=== PATIENT | male | born 1975 | race Two or more races ===

== ENCOUNTER 2020-12-10 11:40 | Emergency (ER) | payer MEDICAID, OTHER ==
[~2020-12-10] VITALS: Ht 167.6 cm; Wt 83.9 kg
[2020-12-10] MEDS ORDERED: KETOROLAC TROMETH 60MG/2ML VIAL IM ONE (14:15)
[2020-12-10 14:45] VITALS: BP 128/66
== END 2020-12-10 15:05 | disposition home or self-care (01) ==
LOC: ER 11:40
DX: G89.29 Other chronic pain (principal); M54.5 Low back pain; Z88.8 Allergy status to other drugs, medicaments and biological substances; Z88.5 Allergy status to narcotic agent
CPT/HCPCS: 72100; 96372; 99283; J1885

== ENCOUNTER 2020-12-14 13:23 | Inpatient (IN) | payer MEDICAID ==
[~2020-12-14] VITALS: Ht 167.6 cm; Wt 97.5 kg
[2020-12-14] MEDS ORDERED: IBUPROFEN 600 MG TAB PO ONE (13:45)
[2020-12-14] MEDS ORDERED: SODIUM CHLORIDE 0.9% 1,000 ML IV ONE ×2 (13:45→20:30)
[2020-12-14] MEDS ORDERED: GABAPENTIN 400 MG CAP PO ONE (13:45)
[2020-12-14] MEDS ORDERED: VANCOMYCIN PER PHARMACY 1,000 MG IV SCH (14:00)
[2020-12-14 14:12] LABS: Basophils # (auto) 0.1 10 ^3/uL (0-0.2); Basophils % (auto) 0.6 % (0.0-2.0); Eosinophils # (auto) 0 10 ^3/uL (0-0.8); Hematocrit 37.6 % (41.0-53.0); Hemoglobin 12.9 g/dL (13.5-17.5); Lymphocytes # (auto) 0.7 10 ^3/uL (0.4-5.4); Lymphocytes % (auto) 5.1 % (10.0-50.0); Mean Corpuscular Hemoglobin 29.3 pg (28.0-32.0); Mean Corpuscular Hgb Conc. 34.2 g/dL (32.0-36.0); Mean Corpuscular Volume 85.8 fL (80.0-100.0); Monocytes % (auto) 6.9 % (0.0-12.0); Neutrophils # (auto) 12.6 10 ^3/uL (1.6-8.6); Neutrophils % (auto) 87.4 % (37.0-80.0); Nucleated Red Blood Cells % 0.1 %; Red Blood Cells 4.39 10^6/uL (4.5-5.90); Red Cell Distribution Width 16.7 % (11.8-14.3); White Blood Cell 14.4 10^3/uL (4.4-10.8)
[2020-12-14] MEDS ORDERED: VANCOMYCIN 1GM/250ML 250 ML IV SCH (14:30)
[2020-12-14 14:31] LABS: Albumin 2.9 g/dL (3.4-5.0); BUN/Creatinine Ratio 16.2; Calcium 9.3 mg/dL (8.5-10.1); Potassium 3.5 mmol/L (3.5-5.1)
[2020-12-14 14:34] LABS: Total Protein 8.4 g/dL (6.4-8.2)
[2020-12-14] MEDS ORDERED: IOHEXOL 300 MG/ML 100ML BOTTLE IJ ONE (14:59)
[2020-12-14 18:04] LABS: Urine Bacteria NONE SEEN /hpf (None Seen); Urine Blood Negative /uL (Negative); Urine Mucus FEW (None Seen); Urine Specific Gravity 1.039 (1.001-1.035); Urine WBC 6 /hpf (0 - 3)
[2020-12-14] MEDS ORDERED: ONDANSETRON HCL 4 MG/2 ML VIAL IV ONE (20:15)
[2020-12-14] MEDS ORDERED: KETOROLAC TROMETH 30 MG/ML 1ML VIAL IV ONE (20:15)
[2020-12-14] MEDS ORDERED: ONDANSETRON HCL 4 MG/2 ML VIAL IV PRN (21:45)
[2020-12-14] MEDS ORDERED: IBUPROFEN 600 MG TAB PO PRN (21:45)
[2020-12-14] MEDS ORDERED: VANCOMYCIN PER PHARMACY 0 MG IV SCH (21:45)
[2020-12-14] MEDS: GABAPENTIN 300 MG CAP PO SCH (22:00)
[2020-12-14] MEDS: PIPERACILLIN-TAZO 4.5GM 100 ML IV SCH ×2 (22:34→23:50)
[2020-12-14] MEDS: SODIUM CHLORIDE 0.9% 1,000 ML IV SCH (23:50)
[2020-12-15] VITALS (7 sets, daily range): BP systolic 97–125; BP diastolic 63–90
[2020-12-15] MEDS ORDERED: GABA-339 PO (01:50)
[2020-12-15] MEDS ORDERED: ACET-1156 PO (01:50)
[2020-12-15] MEDS ORDERED: IBUP200C95 PO (01:50)
[2020-12-15] MEDS: ACETAMINOPHEN 325 MG TAB PO PRN (04:41)
[2020-12-15 06:20] LABS: Basophils # (auto) 0 10 ^3/uL (0-0.2); Basophils % (auto) 0.1 % (0.0-2.0); Eosinophils # (auto) 0 10 ^3/uL (0-0.8); Eosinophils % (auto) 0.1 % (0.0-7.0); Hematocrit 34.5 % (41.0-53.0); Hemoglobin 11.4 g/dL (13.5-17.5); Lymphocytes # (auto) 1.6 10 ^3/uL (0.4-5.4); Lymphocytes % (auto) 11.2 % (10.0-50.0); Mean Corpuscular Hemoglobin 28.8 pg (28.0-32.0); Mean Corpuscular Hgb Conc. 33.1 g/dL (32.0-36.0); Mean Corpuscular Volume 86.8 fL (80.0-100.0); Monocytes # (auto) 1.2 10 ^3/uL (0-1.3); Monocytes % (auto) 8.6 % (0.0-12.0); Neutrophils # (auto) 11.1 10 ^3/uL (1.6-8.6); Red Blood Cells 3.97 10^6/uL (4.5-5.90); Red Cell Distribution Width 16.9 % (11.8-14.3); White Blood Cell 13.9 10^3/uL (4.4-10.8)
[2020-12-15] MEDS: PIPERACILLIN-TAZO 4.5GM 100 ML IV SCH (06:27)
[2020-12-15 06:40] LABS: Albumin 2.3 g/dL (3.4-5.0); Calcium 8.9 mg/dL (8.5-10.1); Potassium 3.5 mmol/L (3.5-5.1)
[2020-12-15 06:42] LABS: Bilirubin, Total 1.7 mg/dL (0.2-1.0); Total Protein 7.2 g/dL (6.4-8.2)
[2020-12-15] MEDS ORDERED: VANCOMYCIN 1GM/250ML 250 ML IV SCH (08:00)
[2020-12-15] MEDS: ENOXAPARIN SOD 40 MG/0.4 ML SYRINGE SC SCH (08:46)
[2020-12-15] MEDS: GABAPENTIN 300 MG CAP PO SCH ×3 (08:46→21:38)
[2020-12-15] MEDS: cefTRIAXone 1GM/50ML D5W 50 ML IV SCH (08:47)
[2020-12-15] MEDS: SODIUM CHLORIDE 0.9% 1,000 ML IV SCH ×2 (08:47→15:45)
[2020-12-15] MEDS ORDERED: VANCOMYCIN PER PHARMACY 1,000 MG IV SCH (09:15)
[2020-12-15] MEDS: VANCOMYCIN 1GM/250ML 250 ML IV SCH ×2 (10:00→21:37)
[2020-12-15] MEDS: MORPHINE SULFATE INJECTION 2 MG/ML SYRG IV PRN ×2 (13:56→20:10)
[2020-12-15] MEDS ORDERED: LACTULOSE 20Gm/30ML SOLN PO PRN (15:45)
[2020-12-15] MEDS: DICYCLOMINE HCL 10 MG CAP PO PRN (20:44)
[2020-12-15] MEDS: DOCUSATE SOD 100 MG CAP PO SCH (21:38)
[2020-12-16] MEDS: MORPHINE SULFATE INJECTION 2 MG/ML SYRG IV PRN ×5 (01:27→20:46)
[2020-12-16] MEDS: SODIUM CHLORIDE 0.9% 1,000 ML IV SCH ×2 (01:27→14:23)
[2020-12-16 05:30] VITALS: BP 127/74
[2020-12-16 05:40] LABS: Basophils # (auto) 0 10 ^3/uL (0-0.2); Basophils % (auto) 0.3 % (0.0-2.0); Eosinophils # (auto) 0 10 ^3/uL (0-0.8); Eosinophils % (auto) 0.1 % (0.0-7.0); Hematocrit 32.9 % (41.0-53.0); Hemoglobin 11.1 g/dL (13.5-17.5); Lymphocytes # (auto) 1.4 10 ^3/uL (0.4-5.4); Lymphocytes % (auto) 12.9 % (10.0-50.0); Mean Corpuscular Hemoglobin 29.3 pg (28.0-32.0); Mean Corpuscular Hgb Conc. 33.6 g/dL (32.0-36.0); Mean Corpuscular Volume 87.1 fL (80.0-100.0); Monocytes # (auto) 0.9 10 ^3/uL (0-1.3); Monocytes % (auto) 8.4 % (0.0-12.0); Neutrophils # (auto) 8.2 10 ^3/uL (1.6-8.6); Neutrophils % (auto) 78.3 % (37.0-80.0); Nucleated Red Blood Cells % 0.1 %; Red Blood Cells 3.78 10^6/uL (4.5-5.90); Red Cell Distribution Width 16.8 % (11.8-14.3); White Blood Cell 10.5 10^3/uL (4.4-10.8)
[2020-12-16] MEDS: GABAPENTIN 300 MG CAP PO SCH ×3 (05:51→21:10)
[2020-12-16 06:02] LABS: Potassium 3.2 mmol/L (3.5-5.1)
[2020-12-16 06:13] LABS: Albumin 2.2 g/dL (3.4-5.0); BUN/Creatinine Ratio 17.5; Calcium 8.6 mg/dL (8.5-10.1)
[2020-12-16 06:24] LABS: Bilirubin, Total 1.5 mg/dL (0.2-1.0)
[2020-12-16 08:01] LABS: Amphetamine Screen, Urine NEGATIVE (NEGATIVE); Barbiturate Scree,Urine NEGATIVE (NEGATIVE); Benzodiazephine Screen, Urine NEGATIVE (NEGATIVE); Cannabinoid Screen, Urine NEGATIVE (NEGATIVE); Cocaine Screen, Urine NEGATIVE (NEGATIVE); Opiate Scree,Urine NEGATIVE (NEGATIVE); Phencyclidine Screen, Urine NEGATIVE (NEGATIVE)
[2020-12-16] MEDS: PANTOPRAZOLE 40 MG TAB PO SCH (08:08)
[2020-12-16] MEDS: cefTRIAXone 1GM/50ML D5W 50 ML IV SCH (08:08)
[2020-12-16] MEDS: ENOXAPARIN SOD 40 MG/0.4 ML SYRINGE SC SCH (08:08)
[2020-12-16] MEDS: DOCUSATE SOD 100 MG CAP PO SCH ×2 (08:08→21:11)
[2020-12-16] MEDS: ACETAMINOPHEN 325 MG TAB PO PRN ×2 (08:15→20:46)
[2020-12-16 08:48] VITALS: BP 123/70
[2020-12-16] MEDS: VANCOMYCIN 1GM/250ML 250 ML IV SCH ×2 (10:30→22:10)
[2020-12-16 13:00] VITALS: BP 117/60
[2020-12-16] MEDS ORDERED: POTASSIUM CHL 20 Meq TABLET PO ONE (13:00)
[2020-12-16] MEDS: DICYCLOMINE HCL 10 MG CAP PO PRN (14:25)
[2020-12-16 16:50] VITALS: BP 131/77
[2020-12-16 22:10] VITALS: BP 133/70
[2020-12-17] MEDS: SODIUM CHLORIDE 0.9% 1,000 ML IV SCH ×3 (01:37→18:05)
[2020-12-17] MEDS: MORPHINE SULFATE INJECTION 2 MG/ML SYRG IV PRN ×5 (01:50→22:39)
[2020-12-17] MEDS: ACETAMINOPHEN 325 MG TAB PO PRN ×3 (04:32→21:10)
[2020-12-17 05:13] VITALS: BP 132/65
[2020-12-17 05:16] LABS: Basophils # (auto) 0 10 ^3/uL (0-0.2); Basophils % (auto) 0.4 % (0.0-2.0); Eosinophils # (auto) 0 10 ^3/uL (0-0.8); Eosinophils % (auto) 0.2 % (0.0-7.0); Hematocrit 39.4 % (41.0-53.0); Lymphocytes # (auto) 0.9 10 ^3/uL (0.4-5.4); Lymphocytes % (auto) 12.5 % (10.0-50.0); Mean Corpuscular Hemoglobin 29.1 pg (28.0-32.0); Mean Corpuscular Hgb Conc. 32.9 g/dL (32.0-36.0); Mean Corpuscular Volume 88.4 fL (80.0-100.0); Monocytes # (auto) 0.8 10 ^3/uL (0-1.3); Monocytes % (auto) 10.9 % (0.0-12.0); Neutrophils # (auto) 5.5 10 ^3/uL (1.6-8.6); Red Blood Cells 4.45 10^6/uL (4.5-5.90); Red Cell Distribution Width 17.2 % (11.8-14.3); White Blood Cell 7.2 10^3/uL (4.4-10.8)
[2020-12-17] MEDS: GABAPENTIN 300 MG CAP PO SCH ×3 (05:41→21:10)
[2020-12-17 05:42] LABS: Calcium 8.8 mg/dL (8.5-10.1); Magnesium 2.3 mg/dL (1.6-2.6); Potassium 3.6 mmol/L (3.5-5.1)
[2020-12-17 05:44] LABS: Bilirubin, Total 1.5 mg/dL (0.2-1.0)
[2020-12-17] MEDS: VANCOMYCIN 1GM/250ML 250 ML IV SCH ×3 (05:53→21:10)
[2020-12-17] MEDS: cefTRIAXone 1GM/50ML D5W 50 ML IV SCH (09:18)
[2020-12-17] MEDS: PANTOPRAZOLE 40 MG TAB PO SCH (09:19)
[2020-12-17] MEDS: ENOXAPARIN SOD 40 MG/0.4 ML SYRINGE SC SCH (09:19)
[2020-12-17] MEDS: DOCUSATE SOD 100 MG CAP PO SCH ×2 (09:19→21:10)
[2020-12-17 10:17] VITALS: BP 104/59
[2020-12-17 13:00] VITALS: BP 123/70
[2020-12-17 17:00] VITALS: BP 131/67
[2020-12-17 22:00] VITALS: BP 135/75
[2020-12-18] MEDS: SODIUM CHLORIDE 0.9% 1,000 ML IV SCH ×2 (03:45→14:30)
[2020-12-18 05:00] VITALS: BP 115/69
[2020-12-18] MEDS: GABAPENTIN 300 MG CAP PO SCH ×3 (05:57→21:49)
[2020-12-18] MEDS: VANCOMYCIN 1GM/250ML 250 ML IV SCH ×4 (06:00→21:49)
[2020-12-18] MEDS: MORPHINE SULFATE INJECTION 2 MG/ML SYRG IV PRN ×3 (06:03→14:30)
[2020-12-18 07:57] LABS: Basophils # (auto) 0 10 ^3/uL (0-0.2); Hematocrit 33.5 % (41.0-53.0); Lymphocytes # (auto) 1.5 10 ^3/uL (0.4-5.4); Mean Corpuscular Volume 86.7 fL (80.0-100.0); Red Blood Cells 3.87 10^6/uL (4.5-5.90)
[2020-12-18 08:00] LABS: Basophils % (auto) 0.2 % (0.0-2.0); Eosinophils # (auto) 0 10 ^3/uL (0-0.8); Eosinophils % (auto) 0.5 % (0.0-7.0); Hemoglobin 11.2 g/dL (13.5-17.5); Mean Corpuscular Hgb Conc. 33.4 g/dL (32.0-36.0); Monocytes % (auto) 10.4 % (0.0-12.0); Neutrophils # (auto) 7.2 10 ^3/uL (1.6-8.6); Neutrophils % (auto) 73.9 % (37.0-80.0); White Blood Cell 9.8 10^3/uL (4.4-10.8)
[2020-12-18 08:13] LABS: Calcium 8.6 mg/dL (8.5-10.1); Potassium 3.2 mmol/L (3.5-5.1)
[2020-12-18 08:15] LABS: BUN/Creatinine Ratio 9.2
[2020-12-18 08:44] VITALS: BP 136/73
[2020-12-18] MEDS: cefTRIAXone 1GM/50ML D5W 50 ML IV SCH (09:58)
[2020-12-18] MEDS: ENOXAPARIN SOD 40 MG/0.4 ML SYRINGE SC SCH (09:58)
[2020-12-18] MEDS: ACETAMINOPHEN 325 MG TAB PO PRN (09:58)
[2020-12-18] MEDS: PANTOPRAZOLE 40 MG TAB PO SCH (09:58)
[2020-12-18] MEDS: DOCUSATE SOD 100 MG CAP PO SCH ×2 (09:58→21:49)
[2020-12-18] MEDS: DICYCLOMINE HCL 10 MG CAP PO PRN (10:12)
[2020-12-18 12:45] VITALS: BP 114/62
[2020-12-18 16:45] VITALS: BP 125/74
[2020-12-18] MEDS ORDERED: BISACODYL 10 MG RECT SUPP PR ONE (17:15)
[2020-12-18] MEDS ORDERED: POTASSIUM CHL 10 Meq TABLET PO ONE (17:30)
[2020-12-18] MEDS: OXYCODONE W/ ACETAMINOPHEN 5/325MG TABLET PO PRN ×2 (17:48→21:50)
[2020-12-18 22:00] VITALS: BP 106/58
[2020-12-19] MEDS: VANCOMYCIN 1GM/250ML 250 ML IV SCH ×3 (04:12→17:09)
[2020-12-19] MEDS: OXYCODONE W/ ACETAMINOPHEN 5/325MG TABLET PO PRN ×4 (04:20→22:55)
[2020-12-19 05:26] VITALS: BP 118/71
[2020-12-19] MEDS: GABAPENTIN 300 MG CAP PO SCH ×3 (05:29→22:17)
[2020-12-19 08:59] LABS: Basophils # (auto) 0 10 ^3/uL (0-0.2); Basophils % (auto) 0.5 % (0.0-2.0); Eosinophils # (auto) 0.1 10 ^3/uL (0-0.8); Lymphocytes # (auto) 1.4 10 ^3/uL (0.4-5.4); Monocytes # (auto) 0.8 10 ^3/uL (0-1.3); Neutrophils # (auto) 7.2 10 ^3/uL (1.6-8.6); White Blood Cell 9.6 10^3/uL (4.4-10.8)
[2020-12-19 09:00] LABS: Eosinophils % (auto) 1.1 % (0.0-7.0); Hematocrit 34.9 % (41.0-53.0); Hemoglobin 11.6 g/dL (13.5-17.5); Lymphocytes % (auto) 14.5 % (10.0-50.0); Mean Corpuscular Hgb Conc. 33.3 g/dL (32.0-36.0); Mean Corpuscular Volume 87.2 fL (80.0-100.0); Monocytes % (auto) 8.7 % (0.0-12.0); Neutrophils % (auto) 75.2 % (37.0-80.0)
[2020-12-19] MEDS ORDERED: FLEET ENEMA(ADULT) 135 ML PR ONE (09:00)
[2020-12-19 09:15] VITALS: BP 113/72
[2020-12-19 09:17] LABS: BUN/Creatinine Ratio 9.4; Calcium 8.7 mg/dL (8.5-10.1); Potassium 3.5 mmol/L (3.5-5.1)
[2020-12-19] MEDS: DOCUSATE SOD 100 MG CAP PO SCH ×2 (10:37→22:17)
[2020-12-19] MEDS: cefTRIAXone 1GM/50ML D5W 50 ML IV SCH (10:37)
[2020-12-19] MEDS: PANTOPRAZOLE 40 MG TAB PO SCH (10:37)
[2020-12-19] MEDS: ENOXAPARIN SOD 40 MG/0.4 ML SYRINGE SC SCH (10:37)
[2020-12-19 13:00] VITALS: BP 130/75
[2020-12-19 17:00] VITALS: BP 122/70
[2020-12-19] MEDS: ACETAMINOPHEN 325 MG TAB PO PRN (20:05)
[2020-12-19 22:00] VITALS: BP 126/69
[2020-12-20] MEDS: VANCOMYCIN 1GM/250ML 250 ML IV SCH ×3 (01:27→18:14)
[2020-12-20] MEDS: OXYCODONE W/ ACETAMINOPHEN 5/325MG TABLET PO PRN ×4 (03:35→18:15)
[2020-12-20 05:00] VITALS: BP 118/69
[2020-12-20] MEDS: GABAPENTIN 300 MG CAP PO SCH ×3 (06:22→22:13)
[2020-12-20 09:00] VITALS: BP 120/68
[2020-12-20] MEDS: cefTRIAXone 1GM/50ML D5W 50 ML IV SCH (09:58)
[2020-12-20] MEDS: PANTOPRAZOLE 40 MG TAB PO SCH (09:59)
[2020-12-20] MEDS: DOCUSATE SOD 100 MG CAP PO SCH ×2 (09:59→22:13)
[2020-12-20] MEDS: ENOXAPARIN SOD 40 MG/0.4 ML SYRINGE SC SCH (10:00)
[2020-12-20 13:01] VITALS: BP 116/66
[2020-12-20] MEDS: KETOROLAC TROMETH 30 MG/ML 1ML VIAL IV PRN ×2 (14:45→22:14)
[2020-12-20 17:01] VITALS: BP 119/62
[2020-12-20 22:00] VITALS: BP 138/70
[2020-12-20] MEDS: NYSTATIN TOPICAL POWDER 15GM TOP SCH (22:00)
[2020-12-21] MEDS: VANCOMYCIN 1GM/250ML 250 ML IV SCH ×3 (01:23→17:30)
[2020-12-21] MEDS: OXYCODONE W/ ACETAMINOPHEN 5/325MG TABLET PO PRN ×3 (03:13→20:47)
[2020-12-21 05:00] VITALS: BP 133/76
[2020-12-21 05:47] LABS: Potassium 3.5 mmol/L (3.5-5.1)
[2020-12-21 05:55] LABS: Calcium 8.9 mg/dL (8.5-10.1); Magnesium 2.7 mg/dL (1.6-2.6)
[2020-12-21 05:59] LABS: Bilirubin, Total 0.8 mg/dL (0.2-1.0)
[2020-12-21] MEDS: GABAPENTIN 300 MG CAP PO SCH ×3 (06:25→22:40)
[2020-12-21 09:00] VITALS: BP 112/64
[2020-12-21] MEDS: DOCUSATE SOD 100 MG CAP PO SCH ×2 (09:20→22:40)
[2020-12-21] MEDS: PANTOPRAZOLE 40 MG TAB PO SCH (09:20)
[2020-12-21] MEDS: ENOXAPARIN SOD 40 MG/0.4 ML SYRINGE SC SCH (09:20)
[2020-12-21] MEDS: KETOROLAC TROMETH 30 MG/ML 1ML VIAL IV PRN ×2 (09:21→17:54)
[2020-12-21] MEDS: cefTRIAXone 1GM/50ML D5W 50 ML IV SCH (10:37)
[2020-12-21 13:00] VITALS: BP 108/65
[2020-12-21] MEDS: NYSTATIN TOPICAL POWDER 15GM TOP SCH ×2 (14:56→22:40)
[2020-12-21 17:00] VITALS: BP 135/74
[2020-12-21] MEDS ORDERED: LORazepam 2MG/ML-1ML VIAL IV ONE (18:00)
[2020-12-21 22:00] VITALS: BP 128/68
[2020-12-21] MEDS: ACETAMINOPHEN 325 MG TAB PO PRN (23:31)
[2020-12-22] MEDS: VANCOMYCIN 1GM/250ML 250 ML IV SCH ×2 (01:43→19:41)
[2020-12-22 05:00] VITALS: BP 114/65
[2020-12-22] MEDS: KETOROLAC TROMETH 30 MG/ML 1ML VIAL IV PRN ×2 (05:01→23:58)
[2020-12-22] MEDS: GABAPENTIN 300 MG CAP PO SCH ×3 (07:26→20:45)
[2020-12-22 09:30] VITALS: BP 115/70
[2020-12-22] MEDS: PANTOPRAZOLE 40 MG TAB PO SCH (10:26)
[2020-12-22] MEDS: DOCUSATE SOD 100 MG CAP PO SCH ×2 (10:26→20:45)
[2020-12-22] MEDS: OXYCODONE W/ ACETAMINOPHEN 5/325MG TABLET PO PRN ×3 (10:27→20:45)
[2020-12-22] MEDS: ENOXAPARIN SOD 40 MG/0.4 ML SYRINGE SC SCH (10:27)
[2020-12-22] MEDS: NYSTATIN TOPICAL POWDER 15GM TOP SCH ×2 (10:30→20:45)
[2020-12-22] MEDS ORDERED: GADOTERATE MEG 10 MMOL/20ml INJ (0.5MMOL/ml) IV ONE (11:57)
[2020-12-22 12:38] VITALS: BP 120/75
[2020-12-22 16:55] VITALS: BP 124/74
[2020-12-22 22:00] VITALS: BP 116/69
[2020-12-23] MEDS: TEMAZEPAM 15 MG CAP PO PRN ×2 (00:10→23:08)
[2020-12-23] MEDS: VANCOMYCIN 1GM/250ML 250 ML IV SCH ×3 (04:00→23:09)
[2020-12-23] MEDS: OXYCODONE W/ ACETAMINOPHEN 5/325MG TABLET PO PRN ×3 (04:00→16:35)
[2020-12-23 05:00] VITALS: BP 115/71
[2020-12-23] MEDS: GABAPENTIN 300 MG CAP PO SCH ×3 (07:10→20:30)
[2020-12-23 08:00] VITALS: BP 133/75
[2020-12-23] MEDS: PANTOPRAZOLE 40 MG TAB PO SCH (08:05)
[2020-12-23] MEDS: DOCUSATE SOD 100 MG CAP PO SCH ×2 (08:05→20:30)
[2020-12-23] MEDS: ENOXAPARIN SOD 40 MG/0.4 ML SYRINGE SC SCH (08:06)
[2020-12-23] MEDS: KETOROLAC TROMETH 30 MG/ML 1ML VIAL IV PRN (08:06)
[2020-12-23] MEDS: NYSTATIN TOPICAL POWDER 15GM TOP SCH ×2 (10:00→20:32)
[2020-12-23 12:00] VITALS: BP 119/67
[2020-12-23] MEDS: HYDROmorphone HCL 2 MG/ML VL IV PRN ×2 (14:37→20:31)
[2020-12-23] MEDS: FLORASTOR (S. BOULARDII) 250 MG CAP PO SCH (14:39)
[2020-12-23 16:00] VITALS: BP 118/77
[2020-12-23] MEDS: Ensure Enlive Strawberry 8oz Bottle PO SCH (18:00)
[2020-12-23 22:10] VITALS: BP 130/80
[2020-12-24] MEDS: HYDROmorphone HCL 2 MG/ML VL IV PRN ×4 (03:56→21:16)
[2020-12-24 05:02] VITALS: BP 102/60
[2020-12-24] MEDS: GABAPENTIN 300 MG CAP PO SCH ×3 (05:57→21:14)
[2020-12-24] MEDS: OXYCODONE W/ ACETAMINOPHEN 5/325MG TABLET PO PRN ×2 (06:40→17:49)
[2020-12-24 07:14] LABS: BUN/Creatinine Ratio 19.7; Calcium 8.7 mg/dL (8.5-10.1); Magnesium 2.9 mg/dL (1.6-2.6); Potassium 3.9 mmol/L (3.5-5.1)
[2020-12-24] MEDS: Ensure Enlive Strawberry 8oz Bottle PO SCH ×2 (08:20→17:48)
[2020-12-24 09:00] VITALS: BP 108/62
[2020-12-24 09:38] LABS: Basophils # (auto) 0 10 ^3/uL (0-0.2); Basophils % (auto) 0.3 % (0.0-2.0); Eosinophils # (auto) 0.1 10 ^3/uL (0-0.8); Hematocrit 35.7 % (41.0-53.0); Hemoglobin 12.3 g/dL (13.5-17.5); Lymphocytes % (auto) 16.8 % (10.0-50.0); Mean Corpuscular Hemoglobin 29.9 pg (28.0-32.0); Mean Corpuscular Hgb Conc. 34.5 g/dL (32.0-36.0); Mean Corpuscular Volume 86.6 fL (80.0-100.0); Monocytes # (auto) 0.7 10 ^3/uL (0-1.3); Monocytes % (auto) 6.3 % (0.0-12.0); Neutrophils % (auto) 75.6 % (37.0-80.0); Red Blood Cells 4.12 10^6/uL (4.5-5.90); Red Cell Distribution Width 16.8 % (11.8-14.3); White Blood Cell 11.8 10^3/uL (4.4-10.8)
[2020-12-24] MEDS: FLORASTOR (S. BOULARDII) 250 MG CAP PO SCH (10:28)
[2020-12-24] MEDS: DOCUSATE SOD 100 MG CAP PO SCH ×2 (10:28→21:14)
[2020-12-24] MEDS: VANCOMYCIN 1GM/250ML 250 ML IV SCH ×2 (10:28→21:13)
[2020-12-24] MEDS: ENOXAPARIN SOD 40 MG/0.4 ML SYRINGE SC SCH (10:29)
[2020-12-24] MEDS: NYSTATIN TOPICAL POWDER 15GM TOP SCH ×2 (10:29→21:14)
[2020-12-24] MEDS: PANTOPRAZOLE 40 MG TAB PO SCH (10:29)
[2020-12-24 13:00] VITALS: BP 123/73
[2020-12-24 17:00] VITALS: BP 117/66
[2020-12-24 22:00] VITALS: BP 121/70
[2020-12-25] MEDS: TEMAZEPAM 15 MG CAP PO PRN (01:28)
[2020-12-25] MEDS: HYDROmorphone HCL 2 MG/ML VL IV PRN ×5 (03:28→22:26)
[2020-12-25 05:00] VITALS: BP 111/60
[2020-12-25] MEDS: VANCOMYCIN 1GM/250ML 250 ML IV SCH ×2 (05:46→16:46)
[2020-12-25] MEDS: GABAPENTIN 300 MG CAP PO SCH ×3 (05:46→22:25)
[2020-12-25] MEDS: OXYCODONE W/ ACETAMINOPHEN 5/325MG TABLET PO PRN ×2 (05:57→16:46)
[2020-12-25] MEDS: DOCUSATE SOD 100 MG CAP PO SCH ×2 (08:51→22:25)
[2020-12-25] MEDS: FLORASTOR (S. BOULARDII) 250 MG CAP PO SCH (08:51)
[2020-12-25] MEDS: PANTOPRAZOLE 40 MG TAB PO SCH (08:51)
[2020-12-25] MEDS: Ensure Enlive Strawberry 8oz Bottle PO SCH ×2 (08:52→16:46)
[2020-12-25] MEDS: NYSTATIN TOPICAL POWDER 15GM TOP SCH ×2 (08:52→22:25)
[2020-12-25] MEDS: ENOXAPARIN SOD 40 MG/0.4 ML SYRINGE SC SCH (08:52)
[2020-12-25 09:00] VITALS: BP 124/80
[2020-12-25 13:00] VITALS: BP 115/70
[2020-12-25] MEDS: ASPirin-EC 81 mg tab PO SCH (13:28)
[2020-12-25 17:11] VITALS: BP 116/71
[2020-12-25 21:54] VITALS: BP 121/76
[2020-12-26] MEDS: TEMAZEPAM 15 MG CAP PO PRN (00:32)
[2020-12-26] MEDS: VANCOMYCIN 1GM/250ML 250 ML IV SCH ×2 (02:23→12:00)
[2020-12-26] MEDS: HYDROmorphone HCL 2 MG/ML VL IV PRN ×6 (04:04→19:54)
[2020-12-26] MEDS: LACTULOSE 20Gm/30ML SOLN PO PRN (04:13)
[2020-12-26 05:30] VITALS: BP 104/61
[2020-12-26 05:59] LABS: Basophils # (auto) 0.1 10 ^3/uL (0-0.2); Eosinophils # (auto) 0.2 10 ^3/uL (0-0.8); Mean Corpuscular Hgb Conc. 32.7 g/dL (32.0-36.0); Monocytes # (auto) 0.8 10 ^3/uL (0-1.3); Neutrophils # (auto) 6.4 10 ^3/uL (1.6-8.6); White Blood Cell 9.4 10^3/uL (4.4-10.8)
[2020-12-26 06:02] LABS: Basophils % (auto) 0.6 % (0.0-2.0); Eosinophils % (auto) 1.9 % (0.0-7.0); Hematocrit 37.6 % (41.0-53.0); Hemoglobin 12.3 g/dL (13.5-17.5); Lymphocytes % (auto) 21.2 % (10.0-50.0); Mean Corpuscular Hemoglobin 28.5 pg (28.0-32.0); Mean Corpuscular Volume 87.3 fL (80.0-100.0); Monocytes % (auto) 8.7 % (0.0-12.0); Neutrophils % (auto) 67.6 % (37.0-80.0); Red Blood Cells 4.31 10^6/uL (4.5-5.90); Red Cell Distribution Width 16.9 % (11.8-14.3)
[2020-12-26] MEDS: GABAPENTIN 300 MG CAP PO SCH ×3 (06:05→21:22)
[2020-12-26 09:00] VITALS: BP 127/74
[2020-12-26] MEDS: Ensure Enlive Strawberry 8oz Bottle PO SCH ×2 (09:15→17:41)
[2020-12-26] MEDS: DOCUSATE SOD 100 MG CAP PO SCH ×2 (10:07→21:21)
[2020-12-26] MEDS: NYSTATIN TOPICAL POWDER 15GM TOP SCH ×2 (10:08→21:22)
[2020-12-26] MEDS: ENOXAPARIN SOD 40 MG/0.4 ML SYRINGE SC SCH (10:08)
[2020-12-26] MEDS: ASPirin-EC 81 mg tab PO SCH (10:08)
[2020-12-26] MEDS: FLORASTOR (S. BOULARDII) 250 MG CAP PO SCH (10:08)
[2020-12-26] MEDS: PANTOPRAZOLE 40 MG TAB PO SCH (10:08)
[2020-12-26 13:00] VITALS: BP 121/76
[2020-12-26 17:00] VITALS: BP 138/78
[2020-12-26] MEDS: OXYCODONE W/ ACETAMINOPHEN 5/325MG TABLET PO PRN (21:28)
[2020-12-26 22:00] VITALS: BP 120/72
[2020-12-26] MEDS ORDERED: VANCOMYCIN 1GM/250ML 250 ML IV SCH (23:00)
[2020-12-27] MEDS: HYDROmorphone HCL 2 MG/ML VL IV PRN ×3 (01:05→20:24)
[2020-12-27 05:00] VITALS: BP 112/78
[2020-12-27] MEDS: OXYCODONE W/ ACETAMINOPHEN 5/325MG TABLET PO PRN ×2 (05:57→12:50)
[2020-12-27] MEDS: GABAPENTIN 300 MG CAP PO SCH ×3 (05:57→21:05)
[2020-12-27 06:06] LABS: Eosinophils # (auto) 0.2 10 ^3/uL (0-0.8); Hematocrit 36.5 % (41.0-53.0); Monocytes # (auto) 0.9 10 ^3/uL (0-1.3); Red Blood Cells 4.19 10^6/uL (4.5-5.90)
[2020-12-27 06:08] LABS: Basophils # (auto) 0.1 10 ^3/uL (0-0.2); Basophils % (auto) 0.6 % (0.0-2.0); Hemoglobin 12.7 g/dL (13.5-17.5); Lymphocytes # (auto) 2.1 10 ^3/uL (0.4-5.4); Lymphocytes % (auto) 22.8 % (10.0-50.0); Mean Corpuscular Hemoglobin 30.2 pg (28.0-32.0); Mean Corpuscular Hgb Conc. 34.7 g/dL (32.0-36.0); Mean Corpuscular Volume 87.2 fL (80.0-100.0); Monocytes % (auto) 9.3 % (0.0-12.0); Neutrophils # (auto) 6.1 10 ^3/uL (1.6-8.6); Neutrophils % (auto) 65.3 % (37.0-80.0); Red Cell Distribution Width 16.8 % (11.8-14.3); White Blood Cell 9.3 10^3/uL (4.4-10.8)
[2020-12-27 06:17] LABS: Calcium 9.1 mg/dL (8.5-10.1); Potassium 4.2 mmol/L (3.5-5.1)
[2020-12-27 09:00] VITALS: BP 132/79
[2020-12-27] MEDS: Ensure Enlive Strawberry 8oz Bottle PO SCH ×2 (10:11→18:09)
[2020-12-27] MEDS: DOCUSATE SOD 100 MG CAP PO SCH ×2 (10:12→21:05)
[2020-12-27] MEDS: PANTOPRAZOLE 40 MG TAB PO SCH (10:12)
[2020-12-27] MEDS: ASPirin-EC 81 mg tab PO SCH (10:12)
[2020-12-27] MEDS: NYSTATIN TOPICAL POWDER 15GM TOP SCH ×2 (10:15→21:06)
[2020-12-27] MEDS: ENOXAPARIN SOD 40 MG/0.4 ML SYRINGE SC SCH (10:15)
[2020-12-27] MEDS: FLORASTOR (S. BOULARDII) 250 MG CAP PO SCH (10:16)
[2020-12-27 12:17] LABS: % Iron Saturation 10.2 % (20-55)
[2020-12-27 13:00] VITALS: BP 128/73
[2020-12-27] MEDS: VANCOMYCIN 1GM/250ML 250 ML IV SCH (13:19)
[2020-12-27 17:00] VITALS: BP 124/79
[2020-12-27 22:00] VITALS: BP 127/67
[2020-12-28] MEDS: VANCOMYCIN 1GM/250ML 250 ML IV SCH ×2 (01:44→13:29)
[2020-12-28] MEDS: HYDROmorphone HCL 2 MG/ML VL IV PRN ×4 (03:32→20:04)
[2020-12-28 04:35] VITALS: BP 120/71
[2020-12-28 05:55] LABS: Calcium 9.2 mg/dL (8.5-10.1); Potassium 4.2 mmol/L (3.5-5.1)
[2020-12-28 05:58] LABS: BUN/Creatinine Ratio 28.8
[2020-12-28] MEDS: LACTULOSE 20Gm/30ML SOLN PO PRN (06:03)
[2020-12-28] MEDS: GABAPENTIN 300 MG CAP PO SCH ×3 (06:03→21:55)
[2020-12-28] MEDS: OXYCODONE W/ ACETAMINOPHEN 5/325MG TABLET PO PRN ×2 (06:03→11:10)
[2020-12-28 09:00] VITALS: BP 112/71
[2020-12-28] MEDS: Ensure Enlive Strawberry 8oz Bottle PO SCH ×2 (10:24→18:00)
[2020-12-28] MEDS: DOCUSATE SOD 100 MG CAP PO SCH ×2 (10:24→21:55)
[2020-12-28] MEDS: PANTOPRAZOLE 40 MG TAB PO SCH (10:25)
[2020-12-28] MEDS: FLORASTOR (S. BOULARDII) 250 MG CAP PO SCH (10:25)
[2020-12-28] MEDS: ENOXAPARIN SOD 40 MG/0.4 ML SYRINGE SC SCH (10:25)
[2020-12-28] MEDS: NYSTATIN TOPICAL POWDER 15GM TOP SCH ×2 (10:25→22:43)
[2020-12-28] MEDS: ASPirin-EC 81 mg tab PO SCH (10:25)
[2020-12-28 13:00] VITALS: BP 112/77
[2020-12-28 17:00] VITALS: BP 120/70
[2020-12-28 22:00] VITALS: BP 117/64
[2020-12-29] MEDS: VANCOMYCIN 1GM/250ML 250 ML IV SCH ×2 (00:46→13:04)
[2020-12-29] MEDS: HYDROmorphone HCL 2 MG/ML VL IV PRN ×4 (01:01→20:22)
[2020-12-29 05:00] VITALS: BP 122/73
[2020-12-29 05:35] LABS: Basophils # (auto) 0.1 10 ^3/uL (0-0.2); Monocytes # (auto) 0.8 10 ^3/uL (0-1.3); Neutrophils # (auto) 5.9 10 ^3/uL (1.6-8.6); Red Blood Cells 4.11 10^6/uL (4.5-5.90)
[2020-12-29 05:38] LABS: Basophils % (auto) 0.8 % (0.0-2.0); Eosinophils # (auto) 0.1 10 ^3/uL (0-0.8); Eosinophils % (auto) 1.3 % (0.0-7.0); Hematocrit 35.6 % (41.0-53.0); Hemoglobin 12.1 g/dL (13.5-17.5); Lymphocytes # (auto) 1.7 10 ^3/uL (0.4-5.4); Lymphocytes % (auto) 20.1 % (10.0-50.0); Mean Corpuscular Hemoglobin 29.5 pg (28.0-32.0); Mean Corpuscular Hgb Conc. 34.1 g/dL (32.0-36.0); Mean Corpuscular Volume 86.7 fL (80.0-100.0); Monocytes % (auto) 9.7 % (0.0-12.0); Neutrophils % (auto) 68.1 % (37.0-80.0); Nucleated Red Blood Cells % 0.1 %; Red Cell Distribution Width 16.5 % (11.8-14.3); White Blood Cell 8.6 10^3/uL (4.4-10.8)
[2020-12-29] MEDS: LACTULOSE 20Gm/30ML SOLN PO PRN (05:47)
[2020-12-29] MEDS: GABAPENTIN 300 MG CAP PO SCH ×3 (05:47→21:42)
[2020-12-29] MEDS: OXYCODONE W/ ACETAMINOPHEN 5/325MG TABLET PO PRN ×2 (06:07→18:10)
[2020-12-29] MEDS: Ensure Enlive Strawberry 8oz Bottle PO SCH ×2 (08:00→18:00)
[2020-12-29 08:51] VITALS: BP 111/80
[2020-12-29] MEDS: ASPirin-EC 81 mg tab PO SCH (09:35)
[2020-12-29] MEDS: PANTOPRAZOLE 40 MG TAB PO SCH (09:35)
[2020-12-29] MEDS: ENOXAPARIN SOD 40 MG/0.4 ML SYRINGE SC SCH (09:35)
[2020-12-29] MEDS: FLORASTOR (S. BOULARDII) 250 MG CAP PO SCH (09:35)
[2020-12-29] MEDS: DOCUSATE SOD 100 MG CAP PO SCH ×2 (09:35→21:42)
[2020-12-29] MEDS: NYSTATIN TOPICAL POWDER 15GM TOP SCH ×2 (09:35→21:42)
[2020-12-29 13:00] VITALS: BP 126/69
[2020-12-29 16:57] VITALS: BP 148/83
[2020-12-29 22:00] VITALS: BP 118/67
[2020-12-29] MEDS: TEMAZEPAM 15 MG CAP PO PRN (22:23)
[2020-12-30] MEDS: OXYCODONE W/ ACETAMINOPHEN 5/325MG TABLET PO PRN ×3 (01:38→16:41)
[2020-12-30] MEDS: VANCOMYCIN 1GM/250ML 250 ML IV SCH ×2 (01:38→12:49)
[2020-12-30] MEDS: HYDROmorphone HCL 2 MG/ML VL IV PRN ×4 (04:38→19:45)
[2020-12-30 05:00] VITALS: BP 117/80
[2020-12-30] MEDS: GABAPENTIN 300 MG CAP PO SCH ×3 (05:58→21:46)
[2020-12-30] MEDS: Ensure Enlive Strawberry 8oz Bottle PO SCH ×2 (08:06→17:46)
[2020-12-30 08:15] VITALS: BP 116/73
[2020-12-30 09:00] VITALS: BP 116/73
[2020-12-30] MEDS: ASPirin-EC 81 mg tab PO SCH (09:51)
[2020-12-30] MEDS: DOCUSATE SOD 100 MG CAP PO SCH ×2 (09:51→21:46)
[2020-12-30] MEDS: FLORASTOR (S. BOULARDII) 250 MG CAP PO SCH (09:51)
[2020-12-30] MEDS: PANTOPRAZOLE 40 MG TAB PO SCH (09:52)
[2020-12-30] MEDS: ENOXAPARIN SOD 40 MG/0.4 ML SYRINGE SC SCH (09:52)
[2020-12-30] MEDS: NYSTATIN TOPICAL POWDER 15GM TOP SCH ×2 (09:52→21:46)
[2020-12-30 13:00] VITALS: BP 139/91
[2020-12-30 17:00] VITALS: BP 121/77
[2020-12-30] MEDS: TEMAZEPAM 15 MG CAP PO PRN (21:46)
[2020-12-30 22:00] VITALS: BP 121/66
[2020-12-31] MEDS: VANCOMYCIN 1GM/250ML 250 ML IV SCH ×2 (00:30→12:55)
[2020-12-31] MEDS: HYDROmorphone HCL 2 MG/ML VL IV PRN ×5 (00:44→22:02)
[2020-12-31 04:14] LABS: Basophils # (auto) 0.1 10 ^3/uL (0-0.2); Eosinophils # (auto) 0.1 10 ^3/uL (0-0.8); Lymphocytes # (auto) 1.7 10 ^3/uL (0.4-5.4); Monocytes # (auto) 0.7 10 ^3/uL (0-1.3); Neutrophils # (auto) 3.8 10 ^3/uL (1.6-8.6); Red Cell Distribution Width 16.3 % (11.8-14.3)
[2020-12-31 04:17] LABS: Eosinophils % (auto) 2.1 % (0.0-7.0); Hematocrit 34.6 % (41.0-53.0); Hemoglobin 11.4 g/dL (13.5-17.5); Lymphocytes % (auto) 26.6 % (10.0-50.0); Mean Corpuscular Hemoglobin 28.3 pg (28.0-32.0); Mean Corpuscular Hgb Conc. 33.1 g/dL (32.0-36.0); Mean Corpuscular Volume 85.6 fL (80.0-100.0); Monocytes % (auto) 10.8 % (0.0-12.0); Neutrophils % (auto) 59.5 % (37.0-80.0); Red Blood Cells 4.05 10^6/uL (4.5-5.90); White Blood Cell 6.5 10^3/uL (4.4-10.8)
[2020-12-31] MEDS: OXYCODONE W/ ACETAMINOPHEN 5/325MG TABLET PO PRN ×3 (04:37→15:38)
[2020-12-31 05:00] VITALS: BP 109/62
[2020-12-31] MEDS: GABAPENTIN 300 MG CAP PO SCH ×3 (06:26→22:02)
[2020-12-31] MEDS: Ensure Enlive Strawberry 8oz Bottle PO SCH ×2 (08:00→18:19)
[2020-12-31 09:00] VITALS: BP 126/73
[2020-12-31] MEDS: DOCUSATE SOD 100 MG CAP PO SCH ×2 (09:36→22:01)
[2020-12-31] MEDS: ASPirin-EC 81 mg tab PO SCH (09:36)
[2020-12-31] MEDS: NYSTATIN TOPICAL POWDER 15GM TOP SCH ×2 (09:37→22:03)
[2020-12-31] MEDS: PANTOPRAZOLE 40 MG TAB PO SCH (09:37)
[2020-12-31] MEDS: FLORASTOR (S. BOULARDII) 250 MG CAP PO SCH (09:37)
[2020-12-31] MEDS: ENOXAPARIN SOD 40 MG/0.4 ML SYRINGE SC SCH (09:37)
[2020-12-31 13:00] VITALS: BP 127/73
[2020-12-31 17:00] VITALS: BP 129/75
[2020-12-31 22:00] VITALS: BP 119/75
[2021-01-01] MEDS: VANCOMYCIN 1GM/250ML 250 ML IV SCH ×2 (00:46→12:59)
[2021-01-01] MEDS: HYDROmorphone HCL 2 MG/ML VL IV PRN ×5 (00:47→20:40)
[2021-01-01 05:00] VITALS: BP 122/75
[2021-01-01] MEDS: GABAPENTIN 300 MG CAP PO SCH ×3 (06:09→22:19)
[2021-01-01] MEDS: OXYCODONE W/ ACETAMINOPHEN 5/325MG TABLET PO PRN ×3 (06:11→18:03)
[2021-01-01 07:58] LABS: Calcium 9.2 mg/dL (8.5-10.1); Potassium 3.9 mmol/L (3.5-5.1)
[2021-01-01] MEDS: Ensure Enlive Strawberry 8oz Bottle PO SCH ×2 (08:00→17:57)
[2021-01-01 09:00] VITALS: BP 121/70
[2021-01-01] MEDS: ASPirin-EC 81 mg tab PO SCH (09:30)
[2021-01-01] MEDS: ENOXAPARIN SOD 40 MG/0.4 ML SYRINGE SC SCH (09:30)
[2021-01-01] MEDS: FLORASTOR (S. BOULARDII) 250 MG CAP PO SCH (09:31)
[2021-01-01] MEDS: DOCUSATE SOD 100 MG CAP PO SCH ×2 (09:31→22:18)
[2021-01-01] MEDS: PANTOPRAZOLE 40 MG TAB PO SCH (09:31)
[2021-01-01] MEDS: NYSTATIN TOPICAL POWDER 15GM TOP SCH ×2 (09:31→22:19)
[2021-01-01 13:00] VITALS: BP 124/77
[2021-01-01 17:00] VITALS: BP 110/71
[2021-01-01] MEDS: LACTULOSE 20Gm/30ML SOLN PO PRN (20:46)
[2021-01-01 22:00] VITALS: BP 130/87
[2021-01-01] MEDS: TEMAZEPAM 15 MG CAP PO PRN (23:29)
[2021-01-02] MEDS: VANCOMYCIN 1GM/250ML 250 ML IV SCH ×2 (00:48→13:00)
[2021-01-02] MEDS: HYDROmorphone HCL 2 MG/ML VL IV PRN ×4 (00:59→18:55)
[2021-01-02 05:00] VITALS: BP 108/72
[2021-01-02] MEDS: GABAPENTIN 300 MG CAP PO SCH ×3 (05:54→22:07)
[2021-01-02] MEDS: Ensure Enlive Strawberry 8oz Bottle PO SCH ×2 (08:00→18:00)
[2021-01-02 09:00] VITALS: BP 119/79
[2021-01-02] MEDS: PANTOPRAZOLE 40 MG TAB PO SCH (11:41)
[2021-01-02] MEDS: ASPirin-EC 81 mg tab PO SCH (11:41)
[2021-01-02] MEDS: ENOXAPARIN SOD 40 MG/0.4 ML SYRINGE SC SCH (11:42)
[2021-01-02] MEDS: DOCUSATE SOD 100 MG CAP PO SCH ×2 (11:42→22:07)
[2021-01-02] MEDS: FLORASTOR (S. BOULARDII) 250 MG CAP PO SCH (11:42)
[2021-01-02] MEDS: LACTULOSE 20Gm/30ML SOLN PO PRN ×2 (11:42→22:07)
[2021-01-02] MEDS: NYSTATIN TOPICAL POWDER 15GM TOP SCH ×2 (11:50→22:08)
[2021-01-02] MEDS: OXYCODONE W/ ACETAMINOPHEN 5/325MG TABLET PO PRN ×2 (15:57→22:14)
[2021-01-02 17:00] VITALS: BP 135/75
[2021-01-02 22:00] VITALS: BP 130/77
[2021-01-03] MEDS: HYDROmorphone HCL 2 MG/ML VL IV PRN ×5 (01:36→22:32)
[2021-01-03] MEDS: VANCOMYCIN 1GM/250ML 250 ML IV SCH ×2 (01:36→13:00)
[2021-01-03 05:00] VITALS: BP 118/77
[2021-01-03] MEDS: GABAPENTIN 300 MG CAP PO SCH ×3 (06:16→22:34)
[2021-01-03] MEDS: Ensure Enlive Strawberry 8oz Bottle PO SCH ×2 (08:00→18:00)
[2021-01-03 09:00] VITALS: BP 105/66
[2021-01-03] MEDS: DOCUSATE SOD 100 MG CAP PO SCH ×2 (10:00→22:32)
[2021-01-03] MEDS: PANTOPRAZOLE 40 MG TAB PO SCH (10:00)
[2021-01-03] MEDS: ASPirin-EC 81 mg tab PO SCH (10:00)
[2021-01-03] MEDS: NYSTATIN TOPICAL POWDER 15GM TOP SCH ×2 (10:00→22:34)
[2021-01-03] MEDS: FLORASTOR (S. BOULARDII) 250 MG CAP PO SCH (10:00)
[2021-01-03] MEDS: ENOXAPARIN SOD 40 MG/0.4 ML SYRINGE SC SCH (10:00)
[2021-01-03 13:00] VITALS: BP 105/67
[2021-01-03] MEDS: LACTULOSE 20Gm/30ML SOLN PO PRN (13:52)
[2021-01-03 17:00] VITALS: BP 117/69
[2021-01-03 22:00] VITALS: BP 123/76
[2021-01-04 01:02] LABS: BUN/Creatinine Ratio 22.4; Calcium 9.2 mg/dL (8.5-10.1); Potassium 3.9 mmol/L (3.5-5.1)
[2021-01-04] MEDS: VANCOMYCIN 1GM/250ML 250 ML IV SCH ×2 (01:26→13:03)
[2021-01-04] MEDS: OXYCODONE W/ ACETAMINOPHEN 5/325MG TABLET PO PRN ×2 (01:27→13:03)
[2021-01-04 05:00] VITALS: BP 120/80
[2021-01-04 06:21] LABS: Basophils # (auto) 0.1 10 ^3/uL (0-0.2); Eosinophils # (auto) 0.2 10 ^3/uL (0-0.8); Hemoglobin 11.8 g/dL (13.5-17.5); Lymphocytes # (auto) 1.8 10 ^3/uL (0.4-5.4); Monocytes # (auto) 0.6 10 ^3/uL (0-1.3); Neutrophils # (auto) 3.5 10 ^3/uL (1.6-8.6); Nucleated Red Blood Cells % 0.1 %; Red Cell Distribution Width 16.1 % (11.8-14.3); White Blood Cell 6.2 10^3/uL (4.4-10.8)
[2021-01-04 06:23] LABS: Basophils % (auto) 1.1 % (0.0-2.0); Eosinophils % (auto) 3.2 % (0.0-7.0); Hematocrit 34.6 % (41.0-53.0); Lymphocytes % (auto) 29.5 % (10.0-50.0); Mean Corpuscular Hemoglobin 28.9 pg (28.0-32.0); Mean Corpuscular Volume 85.1 fL (80.0-100.0); Monocytes % (auto) 10.2 % (0.0-12.0); Red Blood Cells 4.07 10^6/uL (4.5-5.90)
[2021-01-04 06:48] LABS: Magnesium 2.8 mg/dL (1.6-2.6); Potassium 4.6 mmol/L (3.5-5.1)
[2021-01-04] MEDS: GABAPENTIN 300 MG CAP PO SCH ×3 (07:00→21:12)
[2021-01-04] MEDS: HYDROmorphone HCL 2 MG/ML VL IV PRN ×2 (07:07→21:12)
[2021-01-04 09:00] VITALS: BP 118/62
[2021-01-04] MEDS: Ensure Enlive Strawberry 8oz Bottle PO SCH ×2 (09:47→17:58)
[2021-01-04] MEDS: PANTOPRAZOLE 40 MG TAB PO SCH (09:48)
[2021-01-04] MEDS: DOCUSATE SOD 100 MG CAP PO SCH ×2 (09:48→21:12)
[2021-01-04] MEDS: ASPirin-EC 81 mg tab PO SCH (09:48)
[2021-01-04] MEDS: ENOXAPARIN SOD 40 MG/0.4 ML SYRINGE SC SCH (09:49)
[2021-01-04] MEDS: NYSTATIN TOPICAL POWDER 15GM TOP SCH ×2 (09:49→21:12)
[2021-01-04] MEDS: FLORASTOR (S. BOULARDII) 250 MG CAP PO SCH (10:00)
[2021-01-04 13:00] VITALS: BP 116/75
[2021-01-04 17:00] VITALS: BP 118/71
[2021-01-04 22:00] VITALS: BP 120/76
[2021-01-05] MEDS: TEMAZEPAM 15 MG CAP PO PRN
[2021-01-05] MEDS: OXYCODONE W/ ACETAMINOPHEN 5/325MG TABLET PO PRN ×2 (00:12→22:09)
[2021-01-05] MEDS: VANCOMYCIN 1GM/250ML 250 ML IV SCH ×2 (01:00→14:05)
[2021-01-05] MEDS: HYDROmorphone HCL 2 MG/ML VL IV PRN ×6 (01:24→22:49)
[2021-01-05 05:00] VITALS: BP 110/68
[2021-01-05] MEDS: GABAPENTIN 300 MG CAP PO SCH ×3 (05:36→22:00)
[2021-01-05] MEDS: Ensure Enlive Strawberry 8oz Bottle PO SCH ×2 (08:34→18:18)
[2021-01-05 09:00] VITALS: BP 117/73
[2021-01-05] MEDS: PANTOPRAZOLE 40 MG TAB PO SCH (10:43)
[2021-01-05] MEDS: ASPirin-EC 81 mg tab PO SCH (10:43)
[2021-01-05] MEDS: DOCUSATE SOD 100 MG CAP PO SCH ×2 (10:43→22:00)
[2021-01-05] MEDS: FLORASTOR (S. BOULARDII) 250 MG CAP PO SCH (10:44)
[2021-01-05] MEDS: ENOXAPARIN SOD 40 MG/0.4 ML SYRINGE SC SCH (10:44)
[2021-01-05] MEDS: NYSTATIN TOPICAL POWDER 15GM TOP SCH ×2 (10:45→22:00)
[2021-01-05 13:00] VITALS: BP 115/67
[2021-01-05 17:00] VITALS: BP 109/77
[2021-01-05 23:59] VITALS: BP 123/73
[2021-01-06] MEDS: VANCOMYCIN 1GM/250ML 250 ML IV SCH ×2 (01:00→13:01)
[2021-01-06 05:00] VITALS: BP 112/72
[2021-01-06] MEDS: GABAPENTIN 300 MG CAP PO SCH ×3 (06:00→22:37)
[2021-01-06] MEDS: Ensure Enlive Strawberry 8oz Bottle PO SCH ×2 (08:55→18:23)
[2021-01-06 09:00] VITALS: BP 127/71
[2021-01-06] MEDS: FLORASTOR (S. BOULARDII) 250 MG CAP PO SCH (10:00)
[2021-01-06] MEDS: ENOXAPARIN SOD 40 MG/0.4 ML SYRINGE SC SCH (10:37)
[2021-01-06] MEDS: DOCUSATE SOD 100 MG CAP PO SCH ×2 (10:38→22:37)
[2021-01-06] MEDS: ASPirin-EC 81 mg tab PO SCH (10:38)
[2021-01-06] MEDS: PANTOPRAZOLE 40 MG TAB PO SCH (10:38)
[2021-01-06] MEDS: HYDROmorphone HCL 2 MG/ML VL IV PRN ×4 (10:46→22:40)
[2021-01-06 13:00] VITALS: BP 117/73
[2021-01-06] MEDS: NYSTATIN TOPICAL POWDER 15GM TOP SCH ×2 (14:05→22:37)
[2021-01-06] MEDS: OXYCODONE W/ ACETAMINOPHEN 5/325MG TABLET PO PRN (16:53)
[2021-01-06 17:00] VITALS: BP 114/74
[2021-01-06 22:00] VITALS: BP 105/60
[2021-01-07] MEDS: VANCOMYCIN 1GM/250ML 250 ML IV SCH ×2 (01:16→12:41)
[2021-01-07] MEDS: HYDROmorphone HCL 2 MG/ML VL IV PRN ×5 (03:35→21:09)
[2021-01-07 05:00] VITALS: BP 105/71
[2021-01-07] MEDS: GABAPENTIN 300 MG CAP PO SCH ×3 (06:00→21:09)
[2021-01-07] MEDS: Ensure Enlive Strawberry 8oz Bottle PO SCH ×2 (07:47→18:40)
[2021-01-07 09:00] VITALS: BP 110/71
[2021-01-07] MEDS: ASPirin-EC 81 mg tab PO SCH (10:10)
[2021-01-07] MEDS: DOCUSATE SOD 100 MG CAP PO SCH ×2 (10:10→21:09)
[2021-01-07] MEDS: ENOXAPARIN SOD 40 MG/0.4 ML SYRINGE SC SCH (10:11)
[2021-01-07] MEDS: FLORASTOR (S. BOULARDII) 250 MG CAP PO SCH (10:11)
[2021-01-07] MEDS: PANTOPRAZOLE 40 MG TAB PO SCH (10:11)
[2021-01-07] MEDS: NYSTATIN TOPICAL POWDER 15GM TOP SCH ×2 (10:11→21:11)
[2021-01-07] MEDS: OXYCODONE W/ ACETAMINOPHEN 5/325MG TABLET PO PRN ×2 (10:12→21:10)
[2021-01-07 13:00] VITALS: BP 115/70
[2021-01-07 17:00] VITALS: BP 122/72
[2021-01-07 22:00] VITALS: BP 122/79
[2021-01-08] MEDS: VANCOMYCIN 1GM/250ML 250 ML IV SCH ×2 (01:00→13:00)
[2021-01-08 05:00] VITALS: BP 105/64
[2021-01-08] MEDS: HYDROmorphone HCL 2 MG/ML VL IV PRN ×4 (06:00→21:15)
[2021-01-08] MEDS: GABAPENTIN 300 MG CAP PO SCH ×3 (06:11→21:26)
[2021-01-08 06:49] LABS: Basophils # (auto) 0 10 ^3/uL (0-0.2); Basophils % (auto) 0.8 % (0.0-2.0); Eosinophils # (auto) 0.1 10 ^3/uL (0-0.8); Eosinophils % (auto) 2.6 % (0.0-7.0); Hematocrit 36.5 % (41.0-53.0); Hemoglobin 12.2 g/dL (13.5-17.5); Lymphocytes # (auto) 1.4 10 ^3/uL (0.4-5.4); Lymphocytes % (auto) 26.2 % (10.0-50.0); Mean Corpuscular Hemoglobin 28.6 pg (28.0-32.0); Mean Corpuscular Hgb Conc. 33.5 g/dL (32.0-36.0); Mean Corpuscular Volume 85.5 fL (80.0-100.0); Monocytes # (auto) 0.5 10 ^3/uL (0-1.3); Monocytes % (auto) 9.8 % (0.0-12.0); Neutrophils # (auto) 3.3 10 ^3/uL (1.6-8.6); Neutrophils % (auto) 60.6 % (37.0-80.0); Red Blood Cells 4.26 10^6/uL (4.5-5.90); Red Cell Distribution Width 16.2 % (11.8-14.3); White Blood Cell 5.5 10^3/uL (4.4-10.8)
[2021-01-08 07:04] LABS: Calcium 9.3 mg/dL (8.5-10.1)
[2021-01-08 09:00] VITALS: BP 134/71
[2021-01-08] MEDS: Ensure Enlive Strawberry 8oz Bottle PO SCH ×2 (09:27→18:07)
[2021-01-08] MEDS: FLORASTOR (S. BOULARDII) 250 MG CAP PO SCH (09:27)
[2021-01-08] MEDS: DOCUSATE SOD 100 MG CAP PO SCH ×2 (09:27→21:26)
[2021-01-08] MEDS: ASPirin-EC 81 mg tab PO SCH (09:27)
[2021-01-08] MEDS: PANTOPRAZOLE 40 MG TAB PO SCH (09:28)
[2021-01-08] MEDS: NYSTATIN TOPICAL POWDER 15GM TOP SCH ×2 (09:28→21:26)
[2021-01-08] MEDS: ENOXAPARIN SOD 40 MG/0.4 ML SYRINGE SC SCH (09:28)
[2021-01-08 13:00] VITALS: BP 101/69
[2021-01-08] MEDS: OXYCODONE W/ ACETAMINOPHEN 5/325MG TABLET PO PRN (13:01)
[2021-01-08 17:00] VITALS: BP 133/72
[2021-01-08 22:00] VITALS: BP 119/80
[2021-01-08] MEDS: TEMAZEPAM 15 MG CAP PO PRN (23:50)
[2021-01-09] MEDS: VANCOMYCIN 1GM/250ML 250 ML IV SCH ×2 (01:03→13:12)
[2021-01-09] MEDS: HYDROmorphone HCL 2 MG/ML VL IV PRN ×4 (04:15→18:47)
[2021-01-09 05:00] VITALS: BP 143/73
[2021-01-09] MEDS: GABAPENTIN 300 MG CAP PO SCH ×3 (06:00→22:02)
[2021-01-09] MEDS: OXYCODONE W/ ACETAMINOPHEN 5/325MG TABLET PO PRN ×3 (06:00→22:03)
[2021-01-09] MEDS: Ensure Enlive Strawberry 8oz Bottle PO SCH ×2 (08:16→18:12)
[2021-01-09 09:00] VITALS: BP 112/77
[2021-01-09] MEDS: ENOXAPARIN SOD 40 MG/0.4 ML SYRINGE SC SCH (10:06)
[2021-01-09] MEDS: PANTOPRAZOLE 40 MG TAB PO SCH (10:06)
[2021-01-09] MEDS: FLORASTOR (S. BOULARDII) 250 MG CAP PO SCH (10:06)
[2021-01-09] MEDS: ASPirin-EC 81 mg tab PO SCH (10:06)
[2021-01-09] MEDS: NYSTATIN TOPICAL POWDER 15GM TOP SCH ×2 (10:06→22:02)
[2021-01-09] MEDS: DOCUSATE SOD 100 MG CAP PO SCH ×2 (10:06→22:02)
[2021-01-09 13:00] VITALS: BP 110/79
[2021-01-09 17:00] VITALS: BP 116/69
[2021-01-09 22:00] VITALS: BP 126/70
[2021-01-10] MEDS: HYDROmorphone HCL 2 MG/ML VL IV PRN ×6 (00:23→18:34)
[2021-01-10] MEDS: VANCOMYCIN 1GM/250ML 250 ML IV SCH ×2 (01:17→14:10)
[2021-01-10 05:00] VITALS: BP 109/61
[2021-01-10] MEDS: GABAPENTIN 300 MG CAP PO SCH ×3 (06:39→21:43)
[2021-01-10] MEDS: Ensure Enlive Strawberry 8oz Bottle PO SCH ×2 (08:00→17:59)
[2021-01-10 09:00] VITALS: BP 126/71
[2021-01-10] MEDS: ENOXAPARIN SOD 40 MG/0.4 ML SYRINGE SC SCH (09:57)
[2021-01-10] MEDS: FLORASTOR (S. BOULARDII) 250 MG CAP PO SCH (09:57)
[2021-01-10] MEDS: DOCUSATE SOD 100 MG CAP PO SCH ×2 (09:57→21:43)
[2021-01-10] MEDS: ASPirin-EC 81 mg tab PO SCH (09:57)
[2021-01-10] MEDS: PANTOPRAZOLE 40 MG TAB PO SCH (09:57)
[2021-01-10] MEDS: NYSTATIN TOPICAL POWDER 15GM TOP SCH ×2 (09:58→21:43)
[2021-01-10 13:00] VITALS: BP 113/65
[2021-01-10] MEDS: OXYCODONE W/ ACETAMINOPHEN 5/325MG TABLET PO PRN ×2 (16:06→21:43)
[2021-01-10 17:00] VITALS: BP 110/74
[2021-01-10 22:00] VITALS: BP 119/58
[2021-01-11] MEDS: HYDROmorphone HCL 2 MG/ML VL IV PRN ×5 (00:06→21:37)
[2021-01-11] MEDS: VANCOMYCIN 1GM/250ML 250 ML IV SCH ×2 (01:28→13:02)
[2021-01-11 05:00] VITALS: BP 98/68
[2021-01-11] MEDS: GABAPENTIN 300 MG CAP PO SCH ×3 (06:29→21:37)
[2021-01-11] MEDS: Ensure Enlive Strawberry 8oz Bottle PO SCH ×2 (08:00→18:28)
[2021-01-11 09:00] VITALS: BP 124/61
[2021-01-11] MEDS: PANTOPRAZOLE 40 MG TAB PO SCH (09:37)
[2021-01-11] MEDS: NYSTATIN TOPICAL POWDER 15GM TOP SCH ×2 (09:37→21:39)
[2021-01-11] MEDS: FLORASTOR (S. BOULARDII) 250 MG CAP PO SCH (09:37)
[2021-01-11] MEDS: ENOXAPARIN SOD 40 MG/0.4 ML SYRINGE SC SCH (09:37)
[2021-01-11] MEDS: DOCUSATE SOD 100 MG CAP PO SCH ×2 (09:37→21:37)
[2021-01-11] MEDS: ASPirin-EC 81 mg tab PO SCH (09:37)
[2021-01-11] MEDS: OXYCODONE W/ ACETAMINOPHEN 5/325MG TABLET PO PRN ×2 (09:38→19:56)
[2021-01-11 13:00] VITALS: BP 105/72
[2021-01-11 17:00] VITALS: BP 112/71
[2021-01-11 22:00] VITALS: BP 130/73
[2021-01-12] MEDS: VANCOMYCIN 1GM/250ML 250 ML IV SCH ×2 (01:53→13:05)
[2021-01-12] MEDS: HYDROmorphone HCL 2 MG/ML VL IV PRN ×5 (01:54→22:11)
[2021-01-12 05:00] VITALS: BP 116/77
[2021-01-12] MEDS: GABAPENTIN 300 MG CAP PO SCH ×3 (06:13→22:00)
[2021-01-12] MEDS: Ensure Enlive Strawberry 8oz Bottle PO SCH ×2 (08:00→17:36)
[2021-01-12 08:45] VITALS: BP 114/75
[2021-01-12] MEDS: NYSTATIN TOPICAL POWDER 15GM TOP SCH ×2 (08:52→22:00)
[2021-01-12] MEDS: FLORASTOR (S. BOULARDII) 250 MG CAP PO SCH (08:52)
[2021-01-12] MEDS: PANTOPRAZOLE 40 MG TAB PO SCH (08:52)
[2021-01-12] MEDS: ENOXAPARIN SOD 40 MG/0.4 ML SYRINGE SC SCH (08:52)
[2021-01-12] MEDS: DOCUSATE SOD 100 MG CAP PO SCH ×2 (08:52→22:00)
[2021-01-12] MEDS: OXYCODONE W/ ACETAMINOPHEN 5/325MG TABLET PO PRN ×2 (08:53→20:42)
[2021-01-12 13:00] VITALS: BP 109/79
[2021-01-12 17:00] VITALS: BP 120/73
[2021-01-12 22:00] VITALS: BP 118/75
[2021-01-13] MEDS: VANCOMYCIN 1GM/250ML 250 ML IV SCH ×2 (01:00→12:39)
[2021-01-13] MEDS: HYDROmorphone HCL 2 MG/ML VL IV PRN ×4 (02:58→21:45)
[2021-01-13 05:11] VITALS: BP 111/67
[2021-01-13 05:48] LABS: Basophils # (auto) 0.1 10 ^3/uL (0-0.2); Basophils % (auto) 0.9 % (0.0-2.0); Eosinophils # (auto) 0.2 10 ^3/uL (0-0.8); Eosinophils % (auto) 3.4 % (0.0-7.0); Hematocrit 35.3 % (41.0-53.0); Hemoglobin 11.7 g/dL (13.5-17.5); Lymphocytes # (auto) 1.6 10 ^3/uL (0.4-5.4); Lymphocytes % (auto) 24.2 % (10.0-50.0); Mean Corpuscular Hemoglobin 28.4 pg (28.0-32.0); Mean Corpuscular Hgb Conc. 33.3 g/dL (32.0-36.0); Mean Corpuscular Volume 85.4 fL (80.0-100.0); Monocytes # (auto) 0.6 10 ^3/uL (0-1.3); Monocytes % (auto) 9.5 % (0.0-12.0); Nucleated Red Blood Cells % 0.1 %; Red Blood Cells 4.13 10^6/uL (4.5-5.90); Red Cell Distribution Width 16.5 % (11.8-14.3); White Blood Cell 6.5 10^3/uL (4.4-10.8)
[2021-01-13] MEDS: GABAPENTIN 300 MG CAP PO SCH ×3 (06:00→21:45)
[2021-01-13 06:12] LABS: BUN/Creatinine Ratio 22.6; Potassium 3.6 mmol/L (3.5-5.1)
[2021-01-13] MEDS: OXYCODONE W/ ACETAMINOPHEN 5/325MG TABLET PO PRN ×2 (06:22→12:39)
[2021-01-13 09:00] VITALS: BP 113/59
[2021-01-13] MEDS: FLORASTOR (S. BOULARDII) 250 MG CAP PO SCH (09:01)
[2021-01-13] MEDS: DOCUSATE SOD 100 MG CAP PO SCH ×2 (09:01→21:44)
[2021-01-13] MEDS: ENOXAPARIN SOD 40 MG/0.4 ML SYRINGE SC SCH (09:01)
[2021-01-13] MEDS: Ensure Enlive Strawberry 8oz Bottle PO SCH ×2 (09:02→18:46)
[2021-01-13] MEDS: PANTOPRAZOLE 40 MG TAB PO SCH (09:02)
[2021-01-13] MEDS: NYSTATIN TOPICAL POWDER 15GM TOP SCH ×2 (09:44→21:45)
[2021-01-13 13:00] VITALS: BP 115/71
[2021-01-13 16:47] VITALS: BP 112/68
[2021-01-13 22:00] VITALS: BP 117/69
[2021-01-13] MEDS: TEMAZEPAM 15 MG CAP PO PRN (23:20)
[2021-01-14] MEDS: VANCOMYCIN 1GM/250ML 250 ML IV SCH ×2 (00:55→13:58)
[2021-01-14] MEDS: HYDROmorphone HCL 2 MG/ML VL IV PRN ×5 (03:27→23:10)
[2021-01-14 05:00] VITALS: BP 106/68
[2021-01-14] MEDS: GABAPENTIN 300 MG CAP PO SCH ×3 (06:00→21:11)
[2021-01-14] MEDS: OXYCODONE W/ ACETAMINOPHEN 5/325MG TABLET PO PRN ×3 (06:36→21:11)
[2021-01-14] MEDS: Ensure Enlive Strawberry 8oz Bottle PO SCH ×2 (08:00→18:00)
[2021-01-14 09:00] VITALS: BP 109/64
[2021-01-14] MEDS: DOCUSATE SOD 100 MG CAP PO SCH ×2 (09:05→21:11)
[2021-01-14] MEDS: PANTOPRAZOLE 40 MG TAB PO SCH (09:06)
[2021-01-14] MEDS: FLORASTOR (S. BOULARDII) 250 MG CAP PO SCH (09:06)
[2021-01-14] MEDS: ENOXAPARIN SOD 40 MG/0.4 ML SYRINGE SC SCH (09:06)
[2021-01-14] MEDS: NYSTATIN TOPICAL POWDER 15GM TOP SCH ×2 (09:06→21:12)
[2021-01-14 13:00] VITALS: BP 112/68
[2021-01-14 17:00] VITALS: BP 130/77
[2021-01-14 22:00] VITALS: BP 119/74
[2021-01-14] MEDS: TEMAZEPAM 15 MG CAP PO PRN (23:11)
[2021-01-15] MEDS: VANCOMYCIN 1GM/250ML 250 ML IV SCH ×2 (01:14→12:34)
[2021-01-15 05:00] VITALS: BP 104/58
[2021-01-15] MEDS: HYDROmorphone HCL 2 MG/ML VL IV PRN ×4 (05:18→18:55)
[2021-01-15] MEDS: GABAPENTIN 300 MG CAP PO SCH ×3 (05:22→21:38)
[2021-01-15] MEDS: Ensure Enlive Strawberry 8oz Bottle PO SCH ×2 (08:00→18:00)
[2021-01-15 08:45] VITALS: BP 99/66
[2021-01-15] MEDS: DOCUSATE SOD 100 MG CAP PO SCH ×2 (09:24→21:38)
[2021-01-15] MEDS: PANTOPRAZOLE 40 MG TAB PO SCH (09:24)
[2021-01-15] MEDS: FLORASTOR (S. BOULARDII) 250 MG CAP PO SCH (09:24)
[2021-01-15] MEDS: ENOXAPARIN SOD 40 MG/0.4 ML SYRINGE SC SCH (09:25)
[2021-01-15] MEDS: NYSTATIN TOPICAL POWDER 15GM TOP SCH ×2 (09:25→21:38)
[2021-01-15] MEDS: OXYCODONE W/ ACETAMINOPHEN 5/325MG TABLET PO PRN ×2 (12:33→20:24)
[2021-01-15 13:00] VITALS: BP 120/68
[2021-01-15 16:45] VITALS: BP 118/75
[2021-01-15 22:00] VITALS: BP 116/69
[2021-01-16] MEDS: VANCOMYCIN 1GM/250ML 250 ML IV SCH ×2 (00:45→13:16)
[2021-01-16] MEDS: HYDROmorphone HCL 2 MG/ML VL IV PRN ×5 (01:15→21:08)
[2021-01-16 05:00] VITALS: BP 93/61
[2021-01-16] MEDS: GABAPENTIN 300 MG CAP PO SCH ×3 (06:00→21:07)
[2021-01-16 09:00] VITALS: BP 112/68
[2021-01-16] MEDS: ENOXAPARIN SOD 40 MG/0.4 ML SYRINGE SC SCH (09:40)
[2021-01-16] MEDS: NYSTATIN TOPICAL POWDER 15GM TOP SCH ×2 (09:40→21:08)
[2021-01-16] MEDS: PANTOPRAZOLE 40 MG TAB PO SCH (09:40)
[2021-01-16] MEDS: FLORASTOR (S. BOULARDII) 250 MG CAP PO SCH (09:40)
[2021-01-16] MEDS: DOCUSATE SOD 100 MG CAP PO SCH ×2 (09:40→21:07)
[2021-01-16] MEDS: Ensure Enlive Strawberry 8oz Bottle PO SCH ×2 (09:40→17:38)
[2021-01-16 13:00] VITALS: BP 112/67
[2021-01-16] MEDS: OXYCODONE W/ ACETAMINOPHEN 5/325MG TABLET PO PRN ×2 (13:27→18:08)
[2021-01-16 17:00] VITALS: BP 113/65
[2021-01-16 21:38] VITALS: BP 102/62
[2021-01-17] MEDS: VANCOMYCIN 1GM/250ML 250 ML IV SCH ×2 (01:09→12:47)
[2021-01-17] MEDS: HYDROmorphone HCL 2 MG/ML VL IV PRN ×5 (01:09→21:08)
[2021-01-17 05:13] VITALS: BP 113/74
[2021-01-17] MEDS: GABAPENTIN 300 MG CAP PO SCH ×3 (05:32→21:10)
[2021-01-17 06:51] LABS: BUN/Creatinine Ratio 29.4; Magnesium 2.5 mg/dL (1.6-2.6); Potassium 4.2 mmol/L (3.5-5.1)
[2021-01-17 06:52] LABS: Basophils # (auto) 0 10 ^3/uL (0-0.2); Basophils % (auto) 0.7 % (0.0-2.0); Eosinophils # (auto) 0.1 10 ^3/uL (0-0.8); Eosinophils % (auto) 2.4 % (0.0-7.0); Hematocrit 35.3 % (41.0-53.0); Hemoglobin 11.6 g/dL (13.5-17.5); Lymphocytes # (auto) 1.7 10 ^3/uL (0.4-5.4); Mean Corpuscular Hemoglobin 28.5 pg (28.0-32.0); Mean Corpuscular Hgb Conc. 32.8 g/dL (32.0-36.0); Mean Corpuscular Volume 86.8 fL (80.0-100.0); Monocytes # (auto) 0.6 10 ^3/uL (0-1.3); Monocytes % (auto) 10.2 % (0.0-12.0); Neutrophils # (auto) 3.2 10 ^3/uL (1.6-8.6); Neutrophils % (auto) 56.7 % (37.0-80.0); Red Blood Cells 4.06 10^6/uL (4.5-5.90); Red Cell Distribution Width 16.7 % (11.8-14.3); White Blood Cell 5.6 10^3/uL (4.4-10.8)
[2021-01-17] MEDS: Ensure Enlive Strawberry 8oz Bottle PO SCH ×2 (07:37→17:33)
[2021-01-17] MEDS: FLORASTOR (S. BOULARDII) 250 MG CAP PO SCH (08:56)
[2021-01-17] MEDS: DOCUSATE SOD 100 MG CAP PO SCH ×2 (08:57→21:10)
[2021-01-17] MEDS: OXYCODONE W/ ACETAMINOPHEN 5/325MG TABLET PO PRN ×3 (08:57→22:17)
[2021-01-17] MEDS: PANTOPRAZOLE 40 MG TAB PO SCH (08:57)
[2021-01-17] MEDS: ENOXAPARIN SOD 40 MG/0.4 ML SYRINGE SC SCH (08:57)
[2021-01-17] MEDS: NYSTATIN TOPICAL POWDER 15GM TOP SCH ×2 (08:58→21:10)
[2021-01-17 09:00] VITALS: BP 106/60
[2021-01-17 13:00] VITALS: BP 121/69
[2021-01-17 17:00] VITALS: BP 109/65
[2021-01-17 22:00] VITALS: BP 115/72
[2021-01-18] MEDS: VANCOMYCIN 1GM/250ML 250 ML IV SCH ×2 (01:25→13:13)
[2021-01-18] MEDS: HYDROmorphone HCL 2 MG/ML VL IV PRN ×4 (01:49→20:27)
[2021-01-18 05:00] VITALS: BP 103/66
[2021-01-18] MEDS: GABAPENTIN 300 MG CAP PO SCH ×3 (05:46→21:56)
[2021-01-18] MEDS: Ensure Enlive Strawberry 8oz Bottle PO SCH ×2 (08:00→18:00)
[2021-01-18 09:06] VITALS: BP 113/62
[2021-01-18] MEDS: DOCUSATE SOD 100 MG CAP PO SCH ×2 (11:02→21:55)
[2021-01-18] MEDS: FLORASTOR (S. BOULARDII) 250 MG CAP PO SCH (11:03)
[2021-01-18] MEDS: PANTOPRAZOLE 40 MG TAB PO SCH (11:03)
[2021-01-18] MEDS: ENOXAPARIN SOD 40 MG/0.4 ML SYRINGE SC SCH (11:03)
[2021-01-18] MEDS: NYSTATIN TOPICAL POWDER 15GM TOP SCH ×2 (11:04→21:56)
[2021-01-18 13:00] VITALS: BP 122/76
[2021-01-18] MEDS: OXYCODONE W/ ACETAMINOPHEN 5/325MG TABLET PO PRN ×2 (13:34→21:56)
[2021-01-18 16:46] VITALS: BP 125/61
[2021-01-18 22:00] VITALS: BP 108/68
[2021-01-19] MEDS: VANCOMYCIN 1GM/250ML 250 ML IV SCH (01:00)
[2021-01-19 01:46] VITALS: BP 115/66
[2021-01-19] MEDS: HYDROmorphone HCL 2 MG/ML VL IV PRN (01:46)
== END 2021-01-19 02:07 | disposition short-term general hospital (02) | DRG 720 ==
LOC: EDBD 13:23 → ER 13:23 → OVERFLOW 21:37 → WEST WING 23:23
PROVIDERS: ADMIT Nurse Practitioner; ATTEND Internal Medicine
PROC: 05HB33Z Insertion of Infusion Device into Right Basilic Vein, Percutaneous Approach (ICD-10-PCS; 2020-12-19)
PROC: B54MZZA Ultrasonography of Right Upper Extremity Veins, Guidance (ICD-10-PCS; 2020-12-19)
PROC: 05HF33Z Insertion of Infusion Device into Left Cephalic Vein, Percutaneous Approach (ICD-10-PCS; principal; 2021-01-04)
PROC: 05HF33Z Insertion of Infusion Device into Left Cephalic Vein, Percutaneous Approach (ICD-10-PCS; 2021-01-04)
PROC: 05H933Z Insertion of Infusion Device into Right Brachial Vein, Percutaneous Approach (ICD-10-PCS; 2021-01-14)
PROC: B54MZZA Ultrasonography of Right Upper Extremity Veins, Guidance (ICD-10-PCS; 2021-01-14)
DX: A41.02 Sepsis due to Methicillin resistant Staphylococcus aureus (principal); G06.1 Intraspinal abscess and granuloma; G82.20 Paraplegia, unspecified; K59.2 Neurogenic bowel, not elsewhere classified; E44.1 Mild protein-calorie malnutrition; T84.63XA Infection and inflammatory reaction due to internal fixation device of spine, initial encounter; N39.0 Urinary tract infection, site not specified; M48.061 Spinal stenosis, lumbar region without neurogenic claudication; M50.30 Other cervical disc degeneration, unspecified cervical region; E87.6 Hypokalemia; N31.9 Neuromuscular dysfunction of bladder, unspecified; G44.209 Tension-type headache, unspecified, not intractable; M46.26 Osteomyelitis of vertebra, lumbar region; Y83.8 Other surgical procedures as the cause of abnormal reaction of the patient, or of later complication, without mention of misadventure at the time of the procedure; Z20.822 Contact with and (suspected) exposure to COVID-19; G89.29 Other chronic pain; K59.00 Constipation, unspecified; Z79.2 Long term (current) use of antibiotics; Z83.3 Family history of diabetes mellitus; Z86.61 Personal history of infections of the central nervous system; Z98.1 Arthrodesis status; Z87.440 Personal history of urinary (tract) infections; Z68.34 Body mass index [BMI] 34.0-34.9, adult; Y92.89 Other specified places as the place of occurrence of the external cause
CPT/HCPCS: 36415; 70553; 71260; 72125; 72129; 72132; 72142; 72158; 74177; 76775; 80048; 80053; 80202; 80307; 81001; 82247; 82565; 83540; 83550; 83605; 83735; 85025; 87040; 87077; 87081; 87086; 87088; 87186; 87426; 93306; 96361; 96365; 96375; 97110; 97530; G0378; J0696; J1885; J2405; J2543